=== PATIENT | male | born 1990 | race Caucasian/White ===

== ENCOUNTER 2018-01-09 15:24 | Emergency (ER) | payer SELFPAY ==
[~2018-01-09 15:24] MED LIST: AMOX-362 PO; CYCL10TA29 PO; ESOM40CA42 PO; HYDR-385 PO; HYDR-4309 PO; IBUP800T37 PO; KET10 PO; LOR5/325 PO; OXYC-865 PO; PENI-24 PO; PER; TRAM-420 PO
[2018-01-09] MEDS ORDERED: IBUP-136 PO (15:38)
[2018-01-09] MEDS ORDERED: ASPI1TAB35 PO (15:38)
--- NOTE | 2018-01-09 15:55 | ER Report ---
History and Physical Time Seen By MD: 15:55 Hx. of Stated Complaint: Pt states he hit L knee 1 week ago on door at work, fell on Wednesday landing on both knees, bilateral knee pain since. No obvious injury or deformity. Pt ambulatory. HPI/ROS CHIEF COMPLAINT: knee pain/injury HISTORY OF PRESENT ILLNESS: This is a 27 year old male. He has bilateral knee pain. 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 This was on Wednesday. Landed on his right knee and then the left knee. Anterior knee pain on both knees, just distal to the patella. His right side seems worse than left. Worsens with walking and any range of motion. pressure makes it hurt as well. He injured the left knee about a week prior () by hitting it against the door of his truck, again hitting the anterior knee. Normal sensation in the legs and feet. Allergies: Coded Allergies: No Known Drug Allergies (Unverified , 01/09/18) Home Meds Reported Medications Aspirin/Acetaminophen/Caffeine (EXCEDRIN EXTRA STRENGTH CAPLET) 1 Each Tablet, 1 EACH PO 01/09/18 Ibuprofen (IBUPROFEN) 200 Mg Capsule, 2 CAP PO Q6H, CAPSULE 01/09/18 Discontinued Scripts Amoxicillin (AMOXICILLIN) 500 Mg Capsule, 1 CAP PO Q8H, #21 CAPSULE 0 Refills TAKE ONE CAPSULE BY MOUTH EVERY 8 HOURS Prov:ISABEL VILLALBA MD 11/09/16 Oxycodone Hcl/Acetaminophen (PERCOCET 5-325 MG TABLET) 1 Each Tablet, 1 EACH PO Q4H for PAIN, #25 TAB 0 Refills Prov:ISABEL VILLALBA MD 11/09/16 Hx Smoking: No Smoking Status: Former Smoker Hx Substance Use Disorder: No Hx Alcohol Use: Yes (RARE) Constitutional Vital Sign - Last 24 Hours 01/09/18 01/09/18 15:30 17:18 Temp 98.4 Pulse 97 Resp 20 18 B/P (MAP) 148/97 145/96 (112) Pulse Ox 97 94 O2 Delivery Room Air Physical Exam General appearance: Alert no distress. Musculoskeletal: both knees show no significant swelling. There is no effusion. There is no obvious deformity of the knee. Patella had pain with palpation of the inferior patella and ligament on both knees. The right seemed a little worse. No pain with palpating the jointlines. Medial jointline is nontender to palpation. Lateral jointline is nontender to palpation. Tej is negative on both knees, but he is guarding and difficult exam due to body habitus. The joint is stable with no comparable ligamentous laxity to the knee. There is no tenderness proximal or distal to the knee. Neurologic: The patient has normal sensation distal to the injury. Cardiovascular: Normal pulses and capillary refill in the foot Skin: No rashes. No skin breakdown. DIFFERENTIAL DIAGNOSIS: After history and physical exam differential diagnosis was considered for knee injury including sprain, fracture, meniscus injury and soft tissue injury. Medical Decision Making EKG/Imaging Imaging EXAMINATION: Right knee 4 views HISTORY: Fall. Knee pain. COMPARISON: None. FINDINGS: Bones of the right knee demonstrate normal alignment. No evidence of acute fracture or dislocation. Chronic surgical changes along the proximal tibia, with four cannulated screws in place. This may be related to a prior tibial tubercle transfer. Joint spaces are preserved. Superior and inferior patellar spurring. Soft tissues are radiographically unremarkable. IMPRESSION: 1. No acute osseous findings at the right knee. 2. Chronic postsurgical changes with screw fixation along the proximal tibia. Report Dictated By: Jose Alston MD at 01/09/2018 5:00 PM EXAMINATION: Left knee 4 views HISTORY: Fall. Knee pain. COMPARISON: None. FINDINGS: Bones of the left knee demonstrate normal alignment. No evidence of fracture or dislocation. The joint spaces are preserved. Chronic superior and inferior patellar spurring. Soft tissues are radiographically unremarkable. IMPRESSION: No acute osseous findings at the left knee. Report Dictated By: Jose Alston MD at 01/09/2018 4:55 PM ED Course/Re-evaluation ED Course Negative imaging. Appears likely contusion. Conservative management discussed. Follow-up with orthopedic surgeon if needed for continued pain and he will discuss with his employer as this was a work related injury. No restrictions at this time. Decision to Disposition Date: Jan 09, 2018 Decision to Disposition Time: 17:07 Depart Departure Latest Vital Signs Vital Signs Date Time Temp Pulse Resp B/P (MAP) Pulse Ox O2 Delivery O2 Flow Rate FiO2 01/09/18 17:18 18 145/96 (112) 94 01/09/18 15:30 98.4 97 Room Air Impression: Primary Impression: Contusion of knee, left Additional Impression: Contusion of knee, right Condition: Improved Disposition: HOME OR SELF-CARE Patient Instructions: Contusion in Adults (ED) Additional Instructions: Ibuprofen 200mg over the counter tablets, take 4 tablets three times a day with food. Apply ice 20 minutes every 1-2 hours while awake. Rest the injured areas, keep them elevated while at rest. Begin gentle range of motion exercises. Problem Qualifiers Primary Impression: Contusion of knee, left Encounter type: initial encounter Qualified Codes: S80.02XA - Contusion of left knee, initial encounter Additional Impression: Contusion of knee, right Encounter type: initial encounter Qualified Codes: S80.01XA - Contusion of right knee, initial encounter PINKY NAVARRO MD Jan 09, 2018 15:55
--- NOTE | 2018-01-09 17:03 | RADIOLOGY IMAGING REPORT ---
FACILITY: [facility] PATIENT NAME: Geo Calvillo : 1990 MR: [id number] V: [id number] EXAM DATE: ORDERING PHYSICIAN: PINKY NAVARRO TECHNOLOGIST: Location: [facility] Patient: Geo Calvillo : 1990 Visit/Account:[id number] Date of Sevice: 01/09/2018 EXAMINATION: Left knee 4 views HISTORY: Fall. Knee pain. COMPARISON: None. FINDINGS: Bones of the left knee demonstrate normal alignment. No evidence of fracture or dislocation. The join t spaces are preserved. Chronic superior and inferior patellar spurring. Soft tissues are radiographically unremarkable. IMPRESSION: No acute osseous findings at the left knee. Report Dictated By: Jose Alston MD at 01/09/2018 4:55 PM Report E-Signed By: Jose Alston MD at 01/09/2018 4:59 PM WSN:[id number]
--- NOTE | 2018-01-09 17:05 | RADIOLOGY IMAGING REPORT ---
FACILITY: [facility] - [place], [place] PATIENT NAME: Geo Calvillo : 1990 MR: [id number] V: [id number] EXAM DATE: ORDERING PHYSICIAN: PINKY NAVARRO TECHNOLOGIST: Location: [facility] Patient: Geo Calvillo : 1990 Visit/Account:[id number] Date of Sevice: 01/09/2018 EXAMINATION: Right knee 4 views HISTORY: Fall. Knee pain. COMPARISON: None. FINDINGS: Bones of the right knee demonstrate normal alignment. No evidence of acute fracture or dislocation. Chronic surgical changes along the proximal tibia, with four cannulated screws in place. This may be related to a prior tibial tubercle transfer. Joint spaces are preserved. Superior and inferior patellar spurring. Soft tissues are radiographically unremarkable. IMPRESSION: 1. No acute osseous findings at the right knee. 2. Chronic postsurgical changes with screw fixation along the proximal tibia. Report Dictated By: Jose Alston MD at 01/09/2018 5:00 PM Report E-Signed By: Jose Alston MD at 01/09/2018 5:02 PM WSN:[id number]
[2018-01-09 17:18] VITALS: BP 145/96
== END 2018-01-09 17:20 | disposition home or self-care (01) ==
LOC: ER 15:30
DX: S80.02XA Contusion of left knee, initial encounter (principal); S80.01XA Contusion of right knee, initial encounter; W18.30XA Fall on same level, unspecified, initial encounter
CPT/HCPCS: 73564; 99283

== ENCOUNTER 2018-07-10 18:06 | Emergency (ER) | payer SELFPAY ==
[~2018-07-10 18:06] MED LIST changes: +ASPI1TAB35 PO; -HYDR-4309 PO; +HYDR-653 PO; +IBUP-136 PO
[2018-07-10 18:11] VITALS: BP 130/93
--- NOTE | 2018-07-10 18:15 | ER Report ---
History and Physical Time Seen By MD: 18:15 HPI/ROS CHIEF COMPLAINT: Sinus infection HISTORY OF PRESENT ILLNESS: 27-year-old male presents ambulatory to the ER complaining of sinus headache for 4 days. He's been having sinus drainage as. The nature. He says he gets two sinus infections a year. Also the time they resolve spontaneously without any problems. This one is much worse than his usual ones. He is complaining of fever and chills. She notes a sore throat. He denies ear pain REVIEW OF SYSTEMS: Respiratory: No cough, no dyspnea. Cardiovascular: No chest pain, no palpitations. Gastrointestinal: No vomiting, no abdominal pain. Musculoskeletal: No back pain. Allergies: Coded Allergies: No Known Drug Allergies (Unverified , 01/09/18) Home Meds Active Scripts Hydrocodone Bit/Acetaminophen (HYDROCODON-ACETAMINOPHEN 5-325) 1 Each Tablet, 1 EACH PO Q4-6H PRN for PAIN, #12 TAKE ONE TABLET BY MOUTH EVERY 4-6 HOURS NEEDED FOR PAIN Prov:HANNAH NEUMANN DO 07/10/18 Prednisone (PREDNISONE) 20 Mg Tablet, 40 MG PO QDAY for sinus inflammation for 7 Days, #14 Prov:HANNAH NEUMANN DO 07/10/18 Cefuroxime Axetil (CEFUROXIME) 500 Mg Tablet, 500 MG PO BID for infection, #20 TAB Prov:HANNAH NEUMANN DO 07/10/18 Discontinued Reported Medications Aspirin/Acetaminophen/Caffeine (EXCEDRIN EXTRA STRENGTH CAPLET) 1 Each Tablet, 1 EACH PO 01/09/18 Ibuprofen (IBUPROFEN) 200 Mg Capsule, 2 CAP PO Q6H, CAPSULE 01/09/18 Reviewed Nurses Notes: Yes Old Medical Records Reviewed: Yes Hx Smoking: No Smoking Status: Former Smoker Hx Substance Use Disorder: No Hx Alcohol Use: Yes (RARE) Constitutional Vital Sign - Last 24 Hours 07/10/18 18:11 Temp 97.9 Pulse 89 Resp 16 B/P (MAP) 130/93 Pulse Ox 95 O2 Delivery Room Air Physical Exam General Appearance: The patient is alert, has no immediate need for airway protection and no current signs of toxicity. Vital signs stable, afebrile, pulse ox normal HEENT: Pupils equal and round no injection. TMs normal, nasal passages grossly erythematous with purulent drainage. There is sinus tenderness. Oropharynx shows mild erythema Respiratory: Chest is non tender, lungs are clear to auscultation. No wheezing or rails Cardiac: regular rate and rhythm Gastrointestinal: Abdomen is soft and non tender, no masses, bowel sounds n ormal. Musculoskeletal: Neck: Neck is supple and non tender. Extremities have full range of motion and are non tender. Skin: No rashes or lesions. DIFFERENTIAL DIAGNOSIS: After history and physical exam differential diagnosis was considered for sinus infection, otitis media, dental pain, pharyngitis, viral syndrome, trigeminal neuralgia, Medical Decision Making ED Course/Re-evaluation ED Course Patient was admitted to an examination room. H&P was done. The differential diagnoses was considered. Patient with severe sinus headache and sinus infection. Patient will be treated with Ceftin 500 mg by mouth twice a day. He is given a prednisone burst. He is given a limited amount of Lortab for temporary pain relief of his sinus headache. He is advised Mucinex D. Patient advised to follow-up with primary care if unimproved in 3-5 days. Decision to Disposition Date: Jul 10, 2018 Decision to Disposition Time: 18:21 Depart Departure Latest Vital Signs Vital Signs Date Time Temp Pulse Resp B/P (MAP) Pulse Ox O2 Delivery O2 Flow Rate FiO2 07/10/18 18:11 97.9 89 16 130/93 95 Room Air Impression: Primary Impression: Sinus infection Additional Impression: Sinus headache Condition: Improved Disposition: HOME OR SELF-CARE Referrals: JOSE BUTTERFIELD JR, MD New Scripts Hydrocodone Bit/Acetaminophen (HYDROCODON-ACETAMINOPHEN 5-325) 1 Each Tablet 1 EACH PO Q4-6H PRN for PAIN, #12 TAKE ONE TABLET BY MOUTH EVERY 4-6 HOURS NEEDED FOR PAIN Prov: HANNAH NEUMANN DO 07/10/18 Prednisone (PREDNISONE) 20 Mg Tablet 40 MG PO QDAY for sinus inflammation for 7 Days, #14 Prov: HANNAH NEUMANN DO 07/10/18 Cefuroxime Axetil (CEFUROXIME) 500 Mg Tablet 500 MG PO BID for infection, #20 TAB Prov: HANNAH NEUMANN DO 07/10/18 Patient Instructions: Sinusitis (ED) Additional Instructions: Take Mucinex D to decongest your sinuses Take ibuprofen for additional pain relief. Take all medications with food Follow-up with Dr. Jose Butterfield ENT specialist if unimproved in 4-5 days Problem Qualifiers Primary Impression: Sinus infection Sinusitis location: maxillary Chronicity: acute Recurrence: not specified as recurrent Qualified Codes: J01.00 - Acute maxillary sinusitis, unspecified HANNAH NEUMANN DO Jul 10, 2018 18:15
[2018-07-10] MEDS ORDERED: CEFU500T10 PO (18:23)
[2018-07-10] MEDS ORDERED: LOR5/325 PO (18:23)
[2018-07-10] MEDS ORDERED: PRED20TA6 PO (18:23)
[2018-07-10] MEDS ORDERED: ACET/HYDROC 5/325MG TH ER ONLY 2 TAB/BOTTLE PO ONE (18:25)
[2018-07-10] MEDS ORDERED: CEFUROXIME AXETIL 250 MG TAB PO ONE (18:25)
[2018-07-10] MEDS ORDERED: predniSONE 20 MG TAB PO ONE (18:25)
== END 2018-07-10 18:38 | disposition home or self-care (01) ==
LOC: ER 18:22
DX: J01.00 Acute maxillary sinusitis, unspecified (principal); R51 Headache
CPT/HCPCS: 99283; J7512

== ENCOUNTER 2018-10-25 01:29 | Emergency (ER) | payer OTHER ==
[~2018-10-25 01:29] MED LIST changes: +CEFU500T10 PO; +PRED20TA6 PO
[2018-10-25 01:32] VITALS: BP 134/98
--- NOTE | 2018-10-25 01:35 | ER Report ---
History and Physical Time Seen By MD: 01:28 HPI/ROS CHIEF COMPLAINT: Sinus infection HISTORY OF PRESENT ILLNESS: 27-year-old male presents with 2 days of sinus congestion and headache. Patient notes clear rhinitis. He denies fever or chills. Patient thinks he has another sinus infection. Patient had a sinus infection was seen in the emergency department here approximately 4 months ago. Patient notes no ear pain. Patient denies allergies. Patient notes a sore throat. Patient notes no alleviating or exacerbating factors. Patient denies cough or productive sputum from lungs. REVIEW OF SYSTEMS: Respiratory: No cough, no dyspnea. Cardiovascular: No chest pain, no palpitations. Gastrointestinal: No vomiting, no abdominal pain. Musculoskeletal: No back pain. Allergies: Coded Allergies: No Known Drug Allergies (Unverified , 10/25/18) Home Meds Active Scripts Prednisone (PREDNISONE) 20 Mg Tablet, 20 MG PO QDAY for reduce sinus swelling, #5 Prov:HANNAH NEUMANN DO 10/25/18 Azithromycin 250 Mg Tab (AZITHROMYCIN 250 MG TAB) 250 Mg Tablet, 0 PO QDAY for infection, #6 TAB TAKE 2 TABLETS ON DAY 1 AND 1 TABLET ON DAYS 2-5 Prov:HANNAH NEUMANN DO 10/25/18 Discontinued Scripts Hydrocodone Bit/Acetaminophen (HYDROCODON-ACETAMINOPHEN 5-325) 1 Each Tablet, 1 EACH PO Q4-6H PRN for PAIN, #12 TAKE ONE TABLET BY MOUTH EVERY 4-6 HOURS NEEDED FOR PAIN Prov:HANNAH NEUMANN DO 07/10/18 Prednisone (PREDNISONE) 20 Mg Tablet, 40 MG PO QDAY for sinus inflammation for 7 Days, #14 Prov:HANNAH NEUMANN 07/10/18 Cefuroxime Axetil (CEFUROXIME) 500 Mg Tablet, 500 MG PO BID for infection, #20 TAB Prov:HANNAH NEUMANN DO 07/10/18 Reviewed Nurses Notes: Yes Old Medical Records Reviewed: Yes Hx Smoking: No Smoking Status: Former Smoker Hx Substance Use Disorder: No Hx Alcohol Use: Yes (RARE) Constitutional Vital Sign - Last 24 Hours 10/25/18 01:32 Temp 98.0 Pulse 88 Resp 16 B/P (MAP) 134/98 Pulse Ox 92 O2 Delivery Room Air Physical Exam General Appearance: The patient is alert, has no immediate need for airway p rotection and no current signs of toxicity. Vital signs stable, afebrile, pulse ox normal HEENT: Pupils equal and round no injection. TMs normal, nasal passages with gross erythema, purulent discharge, oropharynx with moderate erythema, no exudate Respiratory: Chest is non tender, lungs are clear to auscultation. Cardiac: regular rate and rhythm Gastrointestinal: Abdomen is soft and non tender, no masses, bowel sounds normal. Musculoskeletal: Neck: Neck is supple and non tender. Extremities have full range of motion and are non tender. Skin: No rashes or lesions. DIFFERENTIAL DIAGNOSIS: After history and physical exam differential diagnosis was considered for headache, sinusitis, viral syndrome, pharyngitis, bronchitis, pneumonia him a dental pain Medical Decision Making ED Course/Re-evaluation ED Course Patient was admitted to an examination room. H&P was done. The differential diagnoses was considered. Patient was sinus headache and sinus pressure and congestion. Patient denies fevers. Patient given Zithromax and prednisone. Patient advised to use Mucinex D. Patient advised to follow-up with primary care if unimproved in 3-5 days. Decision to Disposition Date: Oct 25, 2018 Decision to Disposition Time: 01:39 Depart Departure Latest Vital Signs Vital Signs Date Time Temp Pulse Resp B/P (MAP) Pulse Ox O2 Delivery O2 Flow Rate FiO2 10/25/18 01:32 98.0 88 16 134/98 92 Room Air Impression: Primary Impression: Sinus headache Additional Impression: Sinus infection Condition: Improved Disposition: HOME OR SELF-CARE Referrals: BETTIE BALDWIN MD, FARRUKH MD New Scripts Prednisone (PREDNISONE) 20 Mg Tablet 20 MG PO QDAY for reduce sinus swelling, #5 Prov: HANNAH NEUMANN DO 10/25/18 Azithromycin 250 Mg Tab (AZITHROMYCIN 250 MG TAB) 250 Mg Tablet 0 PO QDAY for infection, #6 TAB TAKE 2 TABLETS ON DAY 1 AND 1 TABLET ON DAYS 2-5 Prov: HANNAH NEUMANN DO 10/25/18 Patient Instructions: Sinusitis (ED) Additional Instructions: Use Mucinex D twice daily to help her sinuses drain Use Nasonex nasal spray Use Afrin nasal spray for 3 days only Follow-up with primary care if unimproved in 3-5 days Problem Qualifiers Additional Impression: Sinus infection Sinusitis location: unspecified location Chronicity: acute Recurrence: not specified as recurrent Qualified Codes: J01.90 - Acute sinusitis, unspecified HANNAH NEUMANN DO Oct 25, 2018 01:35
[2018-10-25] MEDS ORDERED: PRED20TA6 PO (01:45)
[2018-10-25] MEDS ORDERED: AZIT-18 PO (01:45)
[2018-10-25] MEDS ORDERED: predniSONE 20 MG TAB PO ONE (01:50)
[2018-10-25] MEDS ORDERED: AZITHROMYCIN 250 MG TAB PO ONE (01:50)
== END 2018-10-25 02:00 | disposition home or self-care (01) ==
LOC: ER 01:51
DX: J01.90 Acute sinusitis, unspecified (principal); R51 Headache
CPT/HCPCS: 99283; J7512; Q0144